=== PATIENT | female | born 1975 | race American Indian/Alaskan Native ===

== ENCOUNTER 2020-10-25 04:48 | Day surgery (SDC) | payer BC ==
[2020-10-22 13:49] VITALS: BMI 26.9
[2020-10-25] MEDS ORDERED: MIDAZOLAM HCL 2 MG/2 ML SINGLE DOSE VIAL ONE (14:29)
[2020-10-25] MEDS ORDERED: PROPOFOL 20 ML ONE (14:29)
[2020-10-25] MEDS ORDERED: ceFAZolin SODIUM 1 GM VIAL ONE (14:36)
[2020-10-25] MEDS ORDERED: ceFAZolin SODIUM 1 GM VIAL IVPB ONE (14:37)
[2020-10-25] MEDS ORDERED: oxyCODONE HCL 5 MG TABLET PO PRN ×3 (14:44→15:29)
[2020-10-25] MEDS ORDERED: ONDANSETRON 4 MG/2 ML VIAL IVPUSH PRN (14:44)
[2020-10-25] MEDS ORDERED: LACTATED RINGERS SOLUTION 1,000 ML IV SCH ×2 (14:45→15:30)
[2020-10-25] MEDS ORDERED: KETOROLAC TROMETHAMINE 30 MG/1 ML VIAL ONE (15:06)
[2020-10-25] MEDS ORDERED: SUCCINYLCHOLINE CHLORIDE 200 MG/10 ML SYRINGE ONE (15:09)
[2020-10-25] MEDS ORDERED: ACETAMINOPHEN 325 MG TABLET (FP) PO PRN (15:29)
[2020-10-25] MEDS ORDERED: IBUPROFEN 400 MG TABLET (FP) PO PRN (15:29)
[2020-10-25 18:01] VITALS: TEMP 97.8
[2020-10-25] MEDS ORDERED: ACETAMINOPHEN 325 MG TABLET (FP) ONE (18:14)
[2020-10-25 19:42] VITALS: BP 125/68; PULSE 86
== END 2020-10-25 19:50 | disposition home or self-care (01) ==
LOC: JASU-SURG 04:48
PROVIDERS: ATTEND Obstetrics & Gynecology
PROC: 0U5B8ZZ Destruction of Endometrium, Via Natural or Artificial Opening Endoscopic (ICD-10-PCS; principal; 2020-10-25 15:00)
PROC: 0UDB7ZZ Extraction of Endometrium, Via Natural or Artificial Opening (ICD-10-PCS; 2020-10-25 15:00)
DX: N92.0 Excessive and frequent menstruation with regular cycle (principal); D25.9 Leiomyoma of uterus, unspecified
CPT/HCPCS: 82962; 86850; 86900; 86901; 88305-TC; 94760